=== PATIENT | female | born 1995 | race African-American/Black ===

== ENCOUNTER 2017-03-30 18:03 | Emergency (ER) | payer MEDICARE, MEDICAID ==
[~2017-03-30] VITALS: Ht 165.1 cm; Wt 45.4 kg
[2017-03-30] MEDS ORDERED: Augmentin 875mg Tab ORAL ONE (18:45)
[2017-03-30] MEDS ORDERED: Tetanus/Diptheria/Pertussis Vaccine 0.5ml Syr IM ONE (18:45)
[2017-03-30] MEDS ORDERED: AUGMENTIN 875-1 EAC1 ORAL (19:04)
[2017-03-30] MEDS ORDERED: IBUPROFEN600 MG ORAL (19:04)
[2017-03-30 19:06] VITALS: BP 91/52
--- NOTE | 2017-03-30 21:20 | Emergency Room Report ---
History of Present Illness General Chief Complaint: General Complaint Source: Patient Present Illness HPI The patient is a 22-year-old female presenting for left forearm pain after stated dogbite today. She is unsure of the dogs vaccination history. Her last tetanus shot is unknown. Pain is a 5/10 dull ache and does not radiate. Worse with touch. She denies any other injury or symptoms Allergies: Coded Allergies: No Known Allergies (Unverified , 03/30/17) Patient History Past Medical History: see triage record Pertinent Family History: none Last Menstrual Period: 03/18/17 Now: No Reviewed Nursing Documentation: PMH: Agreed, PSxH: Agreed Nursing Documentation-PMH Past Medical History: No Stated History Review of Systems All Other Systems: negative except mentioned in HPI Physical Exam Vital Signs Date Time Temp Pulse Resp B/P (MAP) Pulse Ox O2 Delivery O2 Flow Rate FiO2 03/30/17 18:29 99.0 72 20 91/52 100 Room Air Sp02 EP Interpretation: reviewed, normal General Appearance: no apparent distress, alert, GCS 15, non-toxic Head: normocephalic, atraumatic Eyes: bilateral eye normal inspection, bilateral eye PERRL ENT: hearing grossly normal, normal pharynx, no angioedema, normal voice Musculoskeletal: normal range of motion, tender - L forearm Neurologic: alert, oriented x3, responsive, motor strength/tone normal, sensory intact, speech normal Psychiatric: judgement/insight normal, memory normal, mood/affect normal, no suicidal/homicidal ideation Skin: laceration - puncture of L dorsal mid forearm. 2cm in diamater. No bleeding. Medical Decision Making PA Attestation Dr. Kim is my supervising physician. Patient management was discussed with my supervising physician Diagnostic Impression: Primary Impression: Dog bite Qualified Codes: W54.0XXA - Bitten by dog, initial encounter ER Course The patient is a 22-year-old female presenting for left forearm pain after stated dogbite today Ddx considered include but not limited to puncture wounds, infection, muscle/ tendon injury PE:NAD puncture of L dorsal mid forearm. 2cm in diameter. No bleeding. Full AROM of wrist and fingers intact. The wound is cleaned with normal saline and Betadine. Dressing applied. She is given tetanus vaccination as well as first dose of Augmentin. She'll be discharged with prescription for Augmentin and pain medication. ER precautions are given. Animal bite paperwork was filled out Last Vital Signs Date Time Temp Pulse Resp B/P (MAP) Pulse Ox O2 Delivery O2 Flow Rate FiO2 03/30/17 19:06 99.0 20 91/52 100 Room Air 03/30/17 18:29 72 Status: improved Disposition: HOME, SELF-CARE Condition: Improved Scripts Ibuprofen* (MOTRIN*) 600 Mg Tablet 600 MG ORAL Q8H Y for For Pain, #30 TAB 0 Refills Prov: RAY CHAMPAGNE 03/30/17 Amoxicillin/Potassium Clav 875-125* (AUGMENTIN 875-125 TABLET*) 1 Each Tablet 1 TAB ORAL TWICE A DAY, #10 TAB Prov: RAY CHAMPAGNE 03/30/17 Referrals: NOT CHOSEN [facility]/,REFERRING (PCP) Patient Instructions: Animal Bite Additional Instructions: I discussed my findings with the patient. All questions and concerns have been answered. Treatment and medication compliance have been addressed. I advised the patient that they need to follow up with PMD in 3-5 days. Return to ED if symptoms worsen, new symptoms arise such as rash or fever, or if needed for any reason. Patient verbalized understanding of discharge instructions. RAY CHAMPAGNE Mar 30, 2017 21:20
== END 2017-03-30 19:06 | disposition home or self-care (01) ==
LOC: EMR 18:20
DX: S51.852A Open bite of left forearm, initial encounter (principal); Z23 Encounter for immunization; W54.0XXA Bitten by dog, initial encounter; Y92.9 Unspecified place or not applicable
CPT/HCPCS: 90471; 90715; 99283